=== PATIENT | female | born 1955 | race Caucasian/White ===

== ENCOUNTER 2017-11-12 13:59 | Emergency (ER) | payer BC ==
[2017-11-12 14:59] LABS: ABS Basophils 0.1 10^3/ul (0-0.2); ABS Eosinophils 0.1 10^3/ul (0-0.6); ABS Lymphocytes 1.4 10^3/ul (1.0-4.8); ABS Monocytes 0.4 10^3/ul (0-0.8); ABS Neutrophils 2.5 10^3/ul (1.5-7.7); ABS Nucleated RBC 0 10^3/ul; Eosinophil % 2.8 % (0-6); Hematocrit 38 % (35-47); Hemoglobin 13.3 g/dl (12.0-16.0); Lymphocyte % 31.2 % (25-47); Mean Corpuscular HGB Conc 35 g/dl (31-36); Mean Corpuscular Hemoglobin 31 pg (27-31); Mean Corpuscular Volume 91 fL (80-97); Mean Platelet Volume 7 um3 (7.4-10.4); Nucleated Red Blood Cells % 0.1; Platelet Count 279 10^3/ul (150-450); Red Blood Count 4.23 10^6/ul (4.0-5.4); Red Cell Distribution Width 12 % (10.5-15); White Blood Count 4.6 10^3/ul (3.5-10.8)
[2017-11-12 15:14] LABS: EGFR Non-African American 77.6 (>60)
[2017-11-12 15:18] LABS: INR 0.94 (0.77-1.02)
--- NOTE | 2017-11-12 15:29 | RAD ---
INDICATION: Aphasia COMPARISON: None. TECHNIQUE: Contiguous axial sections of the brain were obtained from the skull base to the vertex without contrast. FINDINGS: The ventricles, cisterns and sulci are within normal limits. The aaron-white matter differentiation is adequately maintained and there is no sulcal effacement. No significant focal abnormality or mass effect is present. There is no evidence for intracranial hemorrhage. No significant focal osseous abnormality is present. The visualized portion of the paranasal sinuses appear clear. The mastoid air cells are well aerated bilaterally. IMPRESSION: Normal CT of the brain.
--- NOTE | 2017-11-12 15:35 | RAD ---
INDICATION: Aphasia COMPARISON: Chest x-ray August 17, 2007 TECHNIQUE: Single AP portable view of the chest was obtained. FINDINGS: Image quality is compromised due to the relative inferiority of a portable chest x-ray. The heart and mediastinum exhibit normal size and contour. The lungs are grossly clear. There is no evidence of a large pleural effusion. Visualized bones are normal for the patient's age. IMPRESSION: No radiographic evidence for acute cardiopulmonary abnormality on this portable chest x-ray.
[2017-11-12 15:42] LABS: Urine Appearance Clear; Urine Blood Negative (Negative); Urine Color Colorless; Urine Ketones Negative (Negative); Urine Protein Negative (Negative); Urine Specific Gravity 1.003 (1.010-1.030); Urine Urobilinogen Negative (Negative)
[2017-11-12] MEDS ORDERED: Iohexol 350* (CONTRAST) 500 ML MDV IV ONE (16:33)
[2017-11-12] MEDS ORDERED: Aspirin Low Dose CHEW TAB* 81 MG PO ONE (17:36)
--- NOTE | 2017-11-12 18:12 | RAD ---
CPT II: CPT II Codes: 3100F INDICATION: The patient COMPARISON: Same day CT of the brain that did not reveal any acute abnormalities. TECHNIQUE: A CT angiogram of the head and neck was performed with 80 cc of Omnipaque 350. Contiguous axial sections were obtained from the thoracic inlet through the jena of Max. Images were reconstructed in the sagittal, coronal planes and in a 3-D volume rendered format. The distal cervical internal carotid artery diameter is used as the denominater for stenosis measurement. CTA NECK: The common and internal carotid arteries are patent without hemodynamically significant stenosis. Right: Measured below the carotid bifurcation the common carotid artery measures just under 7 mm in short axis diameter. Above the carotid bifurcation the internal carotid artery measures 6 mm in diameter yielding approximately 17% degree stenosis. Left: Below the carotid bifurcation the common carotid artery measures 7 mm in diameter and 7 mm above the bifurcation yielding 0% degree stenosis. The vertebral arteries are patent without gross abnormality. CTA of the brain: The internal carotid, anterior and middle cerebral arteries appear are patent without high grade stenosis or occlusion. The vertebral, basilar and posterior cerebral arteries appear patent without high grade stenosis or occlusion. 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 No focal luminal filling defect, aneurysm or vascular malformation is seen. NON-ARTERIAL FINDINGS: There are mild degenerative changes of the cervical spine including loss of intervertebral disc height and marginal osteophyte formation most severely affecting C5/C6. IMPRESSION: No acute arterial abnormality involving the head or neck.
[2017-11-12 18:33] VITALS: BP 142/80
--- NOTE | 2017-11-12 20:51 | ED ---
Elijah Wynn Nikita, scribed for Pravin Pop MD on 11/12/17 at 1436 . Neurological HPI - HPI Summary HPI Summary: This patient is a 61 year old F presenting to ED with a chief complaint of aphasia at 1335. The CC is described as lasting for 5 minutes. The patient rates the pain 0/10 in severity. Symptoms aggravated by nothing. Symptoms alleviated by spontaneous resolution. Patient denies numbness or tingling, slurred speech, facial drooping, blurred vision, HATHAWAY, CP, palpitations, LE and UE weakness. Pt stated she took a "weight loss supplement" around 1130. - History of Current Complaint Chief Complaint: EDNeurologicalDeficit Stated Complaint: TROUBLE SPEAKING Time Seen by Provider: 11/12/17 14:26 Hx Obtained From: Patient Onset/Duration: Sudden Onset, Started hours ago, Still Present Timing: Intermittent Episodes Lasting: - 5 minutes Current Severity: None Pain Intensity: 0 Pain Scale Used: 0-10 Numeric Character: Other: - aphasia; Patient denies numbness or tingling, slurred speech , facial drooping, blurred vision, HATHAWAY, CP, palpitations, LE and UE weakness. Aggravating: Nothing Alleviating: Spontanious Resolution - Allergy/Home Medications Allergies/Adverse Reactions: Allergies Allergy/AdvReac Type Severity Reaction Status Date / Time No Known Allergies Allergy See Comment Verified 11/12/17 16:00 Home Medications: Home Medications NK [No Home Medications Reported] 11/12/17 [History Confirmed 11/12/17] PMH/Surg Hx/FS Hx/Imm Hx Endocrine/Hematology History: Denies: Hx Diabetes Cardiovascular History: Denies: Hx Coronary Artery Disease, Hx Hypertension Infectious Disease History: No Infectious Disease History: Denies: Traveled Outside the [place] in Last 30 Days - Family History Known Family History: Positive: Hypertension, Other Family History: TIA - Social History Alcohol Use: None Substance Use Type: Reports: None Smoking Status (MU): Never Smoked Tobacco Review of Systems Negative: Palpitations, Chest Pain Neurological: Other - aphasia; Patient denies numbness or tingling, slurred speech, facial drooping, blurred vision, HATHAWAY, LE and UE weakness. All Other Systems Reviewed And Are Negative: Yes Physical Exam - Summary Physical Exam Summary: VITAL SIGNS: Reviewed. GENERAL: ~Patient is a well-developed and nourished FEMALE who is lying comfortable in the stretcher. ~Patient is not in any acute respiratory distress. HEAD AND FACE: No signs of trauma. ~No ecchymosis, hematomas or skull depressions. No sinus tenderness. EYES: PERRLA, EOMI x 2, No injected conjunctiva, no nystagmus. No photophobia. EARS: Hearing grossly intact. Ear canals and tympanic membranes are within normal limits. MOUTH: Oropharynx within normal limits. NECK: Supple, trachea is midline, no adenopathy, no JVD, no carotid bruit, no c- spine tenderness, neck with full ROM. No meningeal signs, no Kernig's or brudzinskis signs. CHEST: Symmetric, no tenderness at palpation LUNGS: Clear to auscultation bilaterally. No wheezing or crackles. CVS: Regular rate and rhythm, S1 and S2 present, no murmurs or gallops appreciated. ABDOMEN: Soft, non-tender. No signs of distention. No rebound no guarding, and no masses palpated. Bowel sounds are normal. EXTREMITIES: FROM in all major joints, no edema, no cyanosis or clubbing. NEURO: Alert and oriented x 3. No acute neurological deficits. Speech is normal and follows commands. SKIN: Dry and warm GCS: 15 Triage Information Reviewed: Yes Vital Signs On Initial Exam: Initial Vitals Temp Pulse Resp BP Pulse Ox 97.2 F 59 18 160/85 96 11/12/17 14:22 11/12/17 14:22 11/12/17 14:22 11/12/17 14:22 11/12/17 14:22 Vital Signs Reviewed: Yes Diagnostics - Vital Signs Vital Signs Temp Pulse Resp BP Pulse Ox 11/12/17 14:26 58 15 97 11/12/17 14:22 97.2 F 59 18 160/85 96 - Laboratory Lab Results: Lab Results 11/12/17 11/12/17 11/12/17 Range/Units 14:47 14:47 14:47 WBC 4.6 (3.5-10.8) 10^3/ul RBC 4.23 (4.0-5.4) 10^6/ul Hgb 13.3 (12.0-16.0) g/dl Hct 38 (35-47) % MCV 91 (80-97) fL MCH 31 (27-31) pg MCHC 35 (31-36) g/dl RDW 12 (10.5-15) % Plt Count 279 (150-450) 10^3/ul MPV 7 L (7.4-10.4) um3 Neut % (Auto) 54.9 (38-83) % Lymph % (Auto) 31.2 (25-47) % [place] % (Auto) 9.3 H (1-9) % Eos % (Auto) 2.8 (0-6) % Baso % (Auto) 1.8 (0-2) % Absolute Neuts (auto) 2.5 (1.5-7.7) 10^3/ul Absolute Lymphs (auto) 1.4 (1.0-4.8) 10^3/ul Absolute Monos (auto) 0.4 (0-0.8) 10^3/ul Absolute Eos (auto) 0.1 (0-0.6) 10^3/ul Absolute Basos (auto) 0.1 (0-0.2) 10^3/ul Absolute Nucleated RBC 0 10^3/ul Nucleated RBC % 0.1 INR (Anticoag Therapy) 0.94 (0.77-1.02) Sodium 139 (133-145) mmol/L Potassium 4.0 (3.5-5.0) mmol/L Chloride 106 (101-111) mmol/L Carbon Dioxide 28 (22-32) mmol/L Anion Gap 5 (2-11) mmol/L BUN 16 (6-24) mg/dL Creatinine 0.76 (0.51-0.95) mg/dL Est GFR ( Amer) 99.8 (>60) Est GFR (Non-Af Amer) 77.6 (>60) BUN/Creatinine Ratio 21.1 H (8-20) Glucose 94 (70-100) mg/dL Calcium 9.3 (8.6-10.3) mg/dL Total Bilirubin 0.40 (0.2-1.0) mg/dL AST 14 (13-39) U/L ALT 14 (7-52) U/L Alkaline Phosphatase 48 (34-104) U/L Troponin I 0.00 (<0.04) ng/mL Total Protein 6.6 (6.4-8.9) g/dL Albumin 4.0 (3.2-5.2) g/dL Globulin 2.6 (2-4) g/dL Albumin/Globulin Ratio 1.5 (1-3) Triglycerides 102 mg/dL Cholesterol 142 mg/dL LDL Cholesterol 77 mg/dL HDL Cholesterol 44.9 mg/dL Urine Color Urine Appearance Urine pH (5-9) Ur Specific [place] (1.010-1.030) Urine Protein (Negative) Urine Ketones (Negative) Urine Blood (Negative) Urine Nitrate (Negative) Urine Bilirubin (Negative) Urine Urobilinogen (Negative) Ur Leukocyte Esterase (Negative) Urine Glucose (Negative) 11/12/17 Range/Units 15:30 WBC (3.5-10.8) 10^3/ul RBC (4.0-5.4) 10^6/ul Hgb (12.0-16.0) g/dl Hct (35-47) % MCV (80-97) fL MCH (27-31) pg MCHC (31-36) g/dl RDW (10.5-15) % Plt Count (150-450) 10^3/ul MPV (7.4-10.4) um3 Neut % (Auto) (38-83) % Lymph % (Auto) (25-47) % [place] % (Auto) (1-9) % Eos % (Auto) (0-6) % Baso % (Auto) (0-2) % Absolute Neuts (auto) (1.5-7.7) 10^3/ul Absolute Lymphs (auto) (1.0-4.8) 10^3/ul Absolute Monos (auto) (0-0.8) 10^3/ul Absolute Eos (auto) (0-0.6) 10^3/ul Absolute Basos (auto) (0-0.2) 10^3/ul Absolute Nucleated RBC 10^3/ul Nucleated RBC % INR (Anticoag Therapy) (0.77-1.02) Sodium (133-145) mmol/L Potassium (3.5-5.0) mmol/L Chloride (101-111) mmol/L Carbon Dioxide (22-32) mmol/L Anion Gap (2-11) mmol/L BUN (6-24) mg/dL Creatinine (0.51-0.95) mg/dL Est GFR ( Amer) (>60) Est GFR (Non-Af Amer) (>60) BUN/Creatinine Ratio (8-20) Glucose (70-100) mg/dL Calcium (8.6-10.3) mg/dL Total Bilirubin (0.2-1.0) mg/dL AST (13-39) U/L ALT (7-52) U/L Alkaline Phosphatase (34-104) U/L Troponin I (<0.04) ng/mL Total Protein (6.4-8.9) g/dL Albumin (3.2-5.2) g/dL Globulin (2-4) g/dL Albumin/Globulin Ratio (1-3) Triglycerides mg/dL Cholesterol mg/dL LDL Cholesterol mg/dL HDL Cholesterol mg/dL Urine Color Colorless Urine Appearance Clear Urine pH 6.0 (5-9) Ur Specific [place] 1.003 L (1.010-1.030) Urine Protein Negative (Negative) Urine Ketones Negative (Negative) Urine Blood Negative (Negative) Urine Nitrate Negative (Negative) Urine Bilirubin Negative (Negative) Urine Urobilinogen Negative (Negative) Ur Leukocyte Esterase Negative (Negative) Urine Glucose Negative (Negative) Result Diagrams: 11/12/17 14:47 11/12/17 14:47 Lab Statement: Any lab studies that have been ordered have been reviewed, and results considered in the medical decision making process. - Radiology CXR Radiology Interpretation Completed By: Radiologist - No radiographic evidence for acute cardiopulmonary abnormality on this portable chest x-ray. ED physician has reviewed this radiology report. - CT Brain CT Interpretation Completed By: Radiologist - Normal CT of the brain. ED physician has reviewed this radiology report. Head CTA CT Interpretation Completed By: Radiologist - No acute arterial abnormality involving the head or neck. ED physician has reviewed this radiology report. - EKG 1440 Cardiac Rate: Bradycardia EKG Rhythm: Sinus Bradycardia - 59 bpm EKG Interpretation: No ST elevations, nml axis NIH Scale - NIH Scale Level of Consciousness: Alert/Keenly Responsive Ask Patient the Month and His/Her Age: Both Correct Ask Pt to Open/Close Eyes and Sliver Handler/Release Non-Paretic Hand: Both Correctly Best Gaze (Only Horizontal Eye Movement): Normal Visual Field Testing: No Visual Loss Facial Paresis-Pt to Smile & Close Eyes or Grimace Symmetry: Normal/Symmetrical Motor Function - Right Arm: No Drift-Holds 10 Seconds Motor Function - Left Arm: No Drift-Holds 10 Seconds Motor Function - Right Leg: No Drift-Holds 10 Seconds Motor Function - Left Leg: No Drift-Holds 10 Seconds Limb Ataxia-Must be out of Proportion to Weakness Present: Absent Sensory (Use Pinprick to Test Arms/Legs/Trunk/Face): Normal Best Language (Describe Picture, Name Items): No Aphasia Dysarthria (Read Several Words): Normal Extinction and Inattention: No Abnormality Total Score: 0 Course/Dx - Course Assessment/Plan: This patient is a 61 year old F presenting to ED with a chief complaint of aphasia at 1335. Blood work is without significant abnormalities. Urinalysis is negative for a UTI. The Head CT is negative for any acute intracranial pathology. At this point, I consulted with Dr. Wset who will consult for the patient. He recommended to take a CTA of the head and give the patient ASA. The CTA reveals no acute arterial abnormality involving the head or neck. Dr. West recommended to D/C the patient with instructions to follow up at his office. He also recommended for the patient to start taking 1 ASA a day. The patient is hemodynamically stable, alert and oriented x3. Patient recommned to take an aspirin per day. - Differential Dx Differential Diagnoses Neuro: Positive: Benign Paroxysmal Positional Vertigo, Cerebrovascular Accident, Seizure Disorder, Transient Ischemic Attack, Vasovagal Reaction - Diagnoses Provider Diagnoses: TIA (transient ischemic attack) - Physician Notifications Discussed Care Of Patient With: Tanner West Time Discussed With Above Provider: 17:55 Instructed by Provider To: Other - Consulted Dr. West who recommended to obtain a CTA of the head and give the patient ASA. Consulted Dr. West at 1800 who receommended for the pt to be D/C with follow up at his office. Discharge - Discharge Plan Condition: Stable Disposition: HOME Patient Education Materials: Transient Ischemic Attack (ED) Referrals: Tanner West MD [Medical Doctor] - 3 Days Additional Instructions: RETURN TO THE ED FOR ANY NEW OR WORSENING SYMPTOMS. WE RECOMMEND FOR YOU TO START TAKING 1 ASPIRIN A DAY. The documentation as recorded by the Elijah mena Nikita accurately reflects the service I personally performed and the decisions made by , Pravin Pop MD.
--- NOTE | 2017-11-13 01:35 | CONS ---
NEUROLOGY CONSULTATION: DATE OF CONSULTATION: 11/12/17 REFERRING PROVIDER: Dr. Pop. LOCATION: She is in the emergency room. CHIEF COMPLAINT: Difficulty coming up with words. HISTORY OF PRESENT ILLNESS: Iris Ovalle is a 61-year-old right-handed woman who is in her usual s rothman of health today this morning talking with her partner Charlette, when she had difficulty coming up with words. She knew what word she wanted to say, but she just could not get them out. There was se lect words that she could not get out and she could produce some full sentences at times. For exampl e, she told Charlette, "my brain is not working right." There were specific words such as "longhorn" an d "obituary" that she just could not come up with in spite of being able to see them in her mind's ey e. After about 2 to perhaps 3 minutes, it cleared and she felt fine. She decided to come in for parish luation. There was no headache, change in vision, slurred speech, facial drooping, or weakness or nu mbness of her limbs. There is no history of hypertension, diabetes, tobacco use or heart disease. T here is no history of head trauma or seizures. She had been well lately without any illnesses. She did not feel faint or lightheaded. She did not have a headache and she does not get headaches as a r ule. PAST MEDICAL HISTORY: Notable for excellent health. MEDICATIONS: She does not take any medications at home. FAMILY HISTORY: Notable for hypertension and multiple strokes in her mother. REVIEW OF SYSTEMS: Negative for cardiac, pulmonary, renal, GI, , psychiatric or endocrine disorder s. PHYSICAL EXAM: She is well nourished and well hydrated. Temperature 97.2 by temporal scan, blood pr essure is running a bit high 150/80 and as high as 160/85 at one point. Heart rate is in the 60s and then sinus on the monitor. Respirations are 14 and oxygen saturation is 98% on room air. Lungs are clear bilaterally. Heart is in a regular rate and rhythm without murmurs. Carotid pulses are symmet rical and there are no cervical bruits. Neurological exam: Pupils, fundi, and eye movements are nor mal. There is no ptosis. Visual tidwell are all full to confrontation. Facial musculature is intact and symmetric. Palate and tongue appear normal. Tongue protrudes in the midline, there is no dysar thria. Facial sensation to light touch and temperature is symmetric. Hearing is intact bilaterally. Neck strength is intact. Motor exam reveals normal muscle tone and strength, in the limbs proximally and distally. There is n o drift of any limb. Sensory exam is intact to light touch, temperature. Reflexes are intact and symmetric in upper and lower extremities and plantar responses are flexor inga aterally. There is no rest, sustention, or action tremor. Finger taps are normal in the hands. Heel to zelaya m aneuver is normal bilaterally. She is alert and oriented and an excellent detailed historian with in tact recent and remote memory. She has normal attention, concentration, and good fund of knowledge. Language is fluent. DIAGNOSTIC STUDIES/LAB DATA: Includes a brain CT of which images I reviewed and interpreted as grayson l. A CT angiogram of the brain, I reviewed the images and I do not see any evidence of carotid steno sis, but the report is pending from the radiologist. Other laboratory data notable for normal CBC, normal chemistry profile, glucose 94, cholesterol 142, LDL 77. INR is normal at 0.94. IMPRESSION: Possible transient ischemic attack. It sounds like she had some word finding difficulty , but not complete loss of fluency. She had no other symptoms and the episode lasted a few minutes. It is fairly sharp for a transient ischemic attack, but it is certainly in the differential diagnosi s. I recommend she will be treated with aspirin 81 mg once per day. If her CT angiogram report is negat bean by the radiologist, I think she can be discharged home for further outpatient workup. If she has recurrent symptoms suggestive of transient ischemic attack or stroke, she is to come immediately jael jasmina to the emergency room. I went over symptoms of stroke with Iris and Charlette. I plan to see he r in followup in my office and arrange for further outpatient workup. [id number]/[facility] #: [id number]
== END 2017-11-12 18:32 | disposition home or self-care (01) ==
LOC: ED 13:59
DX: G45.9 Transient cerebral ischemic attack, unspecified (principal); R47.01 Aphasia
CPT/HCPCS: 36415; 70450; 70496; 70498; 71045; 80053; 80061; 81003; 84484; 85025; 85610; 93005; 99283; A9270-GY; Q9967

== ENCOUNTER 2018-01-08 15:14 | Emergency (ER) | payer BC ==
--- NOTE | 2018-01-08 15:25 | UC ---
Eye Complaint HPI - HPI Summary HPI Summary: 62 y/o female presents to the urgent care c/o left eye swelling and a probably a stye since 01/05/2018. Pt reports she felt a white pustule on her left upper eyelid and she started to put war compresses. but symptoms are not improving and this morning she woke up w/ redness and swelling around her left eye w/ clear eye discharge. Pain at touch is 4/10. Pt denies fever, visual disturbance , photophobia, HATHAWAY, dizziness, SOB, chest pain, abdominal pain, N/V/D. Denies MRSA. - History of Current Complaint Stated Complaint: L EYE COMPLAINT Time Seen by Provider: 01/08/18 15:24 Hx Obtained From: Patient Onset/Duration: Gradual Onset, Lasting Days - 3 days, Still Present, Worse Since - today Timing: Constant Severity Initially: Mild Severity Currently: Mild Pain Intensity: 4 - at touch Pain Scale Used: 0-10 Numeric Location of Injury: Eye Lid (upper) - lateral side of left upper eyelid w/ white pustule, Periorbital - ;eft eye Character: Dull Aggravating Factor(s): Blinking, Other - touch Alleviating Factor(s): Nothing Associated Signs And Symptoms: Positive: Drainage (Clear), Swelling - left eye. Negative: Photophobia, Vision Impairment Right, Vision Impairment Left, Fever - Risk Factors Penetrating Injury Risk Factor: Negative Globe Rupture Risk Factors: Negative Acute Glaucoma Risk Factors: Negative Optic Artery Occlusion Risk Factors: Negative - Allergies/Home Medications Allergies/Adverse Reactions: Allergies Allergy/AdvReac Type Severity Reaction Status Date / Time No Known Allergies Allergy See Comment Verified 01/08/18 15:28 Home Medications: Home Medications Aspirin 81 mg CHEW TAB* 81 mg PO DAILY 01/08/18 [History Confirmed 01/08/18] Loperamide CAP* [Imodium CAP*] 1 tab PO PRN 01/08/18 [History] PMH/Surg Hx/FS Hx/Imm Hx Previously Healthy: Yes - Pt denies PMHX - Surgical History Surgical History: Yes Surgery Procedure, Year, and Place: hernia repair - Family History Known Family History: Positive: Hypertension, Other Family History: TIA - Social History Occupation: Employed Full-time Lives: With Family Alcohol Use: None Substance Use Type: None Smoking Status (MU): Never Smoked Tobacco Review of Systems Constitutional: Negative Skin: Negative Eyes: Eye Redness - left eye redness w/ upper white pustule in the upper eyelid , swelling and redness aroun eye ENT: Negative Respiratory: Negative Cardiovascular: Negative Gastrointestinal: Negative Genitourinary: Negative Motor: Negative Neurovascular: Negative Musculoskeletal: Negative Neurological: Negative Psychological: Negative Is Patient Immunocompromised?: No All Other Systems Reviewed And Are Negative: Yes Physical Exam - Summary Physical Exam Summary: Vital Signs Reviewed: Yes General: Well appearing, well nourished female in no apparent pain distress Eyes: Positive: Conjunctiva Inflamed - Visual acuity: WNL,Visual tidwell: full to confrontation. positive mild periorbital soft tissue swelling of LF eye. Positive lateral side of left upper eyelid w/ erythema and internal white small pustule, tender to palpation. PERRLA, EOMI intact w/out limitation or complaint of pain. eyelashes clear. mild tearing and clear drainage observed. No ciliary flush. No chemosis, No photophobia. Normal fundoscopic exam; no proptosis, no exophthalmos, no nystagmus. ENT: Positive: Normal ENT inspection, Hearing grossly normal, Pharynx normal, Nasal congestion, Nasal drainage - clear, TMs normal - B/L external ear canal clear , TM's WNL. Negative: Tonsillar swelling, Tonsillar exudate Neck: Positive: Supple, Nontender, No Lymphadenopathy Respiratory: Positive: Chest nontender, Lungs clear, Normal breath sounds, No respiratory distress Cardiovascular: Positive: RRR, No Murmur, Pulses Normal, Brisk Capillary Refill Abdomen Description: Positive: Nontender, No Organomegaly, Soft. Negative: CVA Tenderness (R), CVA Tenderness (L) Bowel Sounds: Positive: Present Musculoskeletal: Positive: Strength Intact, ROM Intact, No Edema Neurological Exam: Normal Psychological Exam: Normal Skin Exam: Normal Triage Information Reviewed: Yes Eye Complaint Course/Dx - Course Course Of Treatment: 62 y/o female presents to the urgent care c/o left eye swelling and a probably a stye since 01/05/2018. Pt reports she felt a white pustule on her left upper eyelid and she started to put war compresses. but symptoms are not improving and this morning she woke up w/ redness and swelling around her left eye w/ clear eye discharge. Pain at touch is 4/10. Pt denies fever, visual disturbance, photophobia, HATHAWAY, dizziness, SOB, chest pain, abdominal pain, N/V/D, Denies Hx of MRSA. Hx obtained/ Pt w/ lateral side of upper eyelid w/ internal hordeolum and preiorbital edema and cellulitis on examination. Dr Perez consulted on PT's symptoms and she recommended ABX and f/ u w/ Opthalmologist tomorrow for re-check. Pt Rx Keflex PO and Erythromycin Ophthalmic Ointment. Pt advised to apply warm compresses and massage the eye with gentle pressure 4-5 times for 10-15min throughout the day. F/u w/ DR Funez Opthalmologist tomorrow for re-check and if not improvement of symptoms and she developes fever, wye pain, HATHAWAY, severe swelling to go immediately to the ER for further management. Pt educated on the risks or periorbital cellulitis. Pt understood and agreed w/ plan of care. Pt left the clinic ambulating,, A&Ox3. - Differential Dx/Diagnosis Differential Diagnosis/HQI/PQRI: Conjunctivitis, Periorbital Cellulitis, Orbital Cellulitis, Other - hortedolum Provider Diagnoses: 1- Left eye w/ internal hordeolum. 2-Left eye peiorbital cellulitis Discharge - Sign-Out/Discharge Documenting (check all that apply): Discharge - Discharge Plan Condition: Stable Disposition: HOME Prescriptions: Cephalexin CAP* [Keflex CAP*] 500 mg PO QID #28 cap Erythromycin TOPICAL GEL* [Erythromycin OPTH OINT*] 1 applic TOPICAL TID #1 tube Patient Education Materials: Stye (ED), Periorbital Cellulitis in Adults (ED) Referrals: Jorge Yeung MD [Primary Care Provider] - 1 Day Raghav Funez MD [Medical Doctor] - 1 Day Additional Instructions: 1-Please take Keflex PO as directed. 2-Please apply ophthalmic ointment in your Left eye as directed. Please apply warm compresses and massage the eye with gentle pressure 4-5 times for 10-15min throughout the day 3- Please f/u with ceo & founder tomorrow for recheck for further evaluation and treatment. If you don't get an appt soon and symptoms worsen despite antibiotics and you develop visual disturbances, eye pain, fever, headache please go immediately to the ER for further treatment. - Billing Disposition and Condition Condition: STABLE Disposition: HOME
[2018-01-08 15:28] VITALS: BP 134/84
== END 2018-01-08 16:00 | disposition home or self-care (01) ==
LOC: UCEAST 15:14
DX: H00.024 Hordeolum internum left upper eyelid (principal); L03.213 Periorbital cellulitis
CPT/HCPCS: 99212; G0463